=== PATIENT | male | born 2000 | race Caucasian/White ===

== ENCOUNTER 2019-02-09 17:27 | Inpatient (IN) ==
[2019-02-09] MEDS ORDERED: SODIUM CHLORIDE 0.9% 1000ML 1,000 ML IV SCH (17:45)
--- NOTE | 2019-02-09 17:56 | Emergency Department Note ---
History of Present Illness General Chief complaint: Seizure Time Seen by Provider: 02/09/19 17:30 History of Present Illness This is a 18-year-old male that presents to the emergency department via ambulance with plaints of seizure. Per history, and review of previous visit it appears that he had a seizure back in September and none since then. The patient denies any drug, alcohol or smoking today but per history it appears that he has used a vapor pen in the past. He does appear to be postictal. The patient d enies any complaints at this time. Per EMS, he was transported here earlier and had a witnessed tonic-clonic seizure that lasted about 1 minute. There was mild head trauma at that time. He was then here as a patient and went home, and was face timing with his girlfriend and his roommate witnessed another tonic-clonic seizure. He struck the head again. Although he is postictal now, he does ans wer questions appropriately. I was notified by the nurse that a vape pen fell out of the patient's pocket. In route, BSG 117. No further seizures. Including this most recent one, he has had 2 seizures today. He is a [employer] student. Home Medications Home Medications Medication Instructions Recorded Confirmed Type epinephrine [EpiPen] 0.3 mg IM UD PRN 02/09/19 02/09/19 History ibuprofen 200 mg PO Q6H PRN 02/09/19 02/09/19 History Allergies Allergy/AdvReac Type Severity Reaction Status Date / Time nut - unspecified Allergy Severe Anaphylaxis Unverified 02/09/19 14:47 shellfish derived Allergy Severe Anaphylaxis Unverified 02/09/19 14:47 Past Med/Surg History Medical History No pertinent past medical history Surgical History No pertinent past surgical history Social History Preferred Language: Sinhala Feels Safe at Home: Yes Smoking Status: Unknown if ever smoked Review of Systems A total of 10 systems reviewed and were otherwise negative Physical Exam Vital Signs Vital Signs - 24 hr 02/09/19 17:31 02/09/19 17:36 02/09/19 17:37 Temperature 37.0 C Temperature Source Oral Sepsis Recent Fever Within 48 Hours No Sepsis Action Taken by Nursing No Action Required Pulse Rate 87 112 H 91 H Pulse Rate from SpO2 Sensor 89 Pulse Rhythm Regular Pulse Strength Normal Respiratory Rate 19 16 17 Respiratory Effort / Characteristics Non-Labored Respiratory Depth Normal Respiratory Pattern Regular Blood Pressure 108/53 L 108/53 L Blood Pressure Mean 71 71 Blood Pressure Position Lying Pulse Oximetry 95 97 Oxygen Delivery Method Room Air 02/09/19 17:40 02/09/19 17:50 02/09/19 18:00 Temperature Temperature Source Sepsis Recent Fever Within 48 Hours Sepsis Action Taken by Nursing Pulse Rate 81 77 78 Pulse Rate from SpO2 Sensor 81 80 83 Pulse Rhythm Pulse Strength Respiratory Rate 13 19 16 Respiratory Effort / Characteristics Respiratory Depth Respiratory Pattern Blood Pressure Blood Pressure Mean Blood Pressure Position Pulse Oximetry 97 98 97 Oxygen Delivery Method 02/09/19 18:10 02/09/19 18:20 02/09/19 18:30 Temperature Temperature Source Sepsis Recent Fever Within 48 Hours Sepsis Action Taken by Nursing Pulse Rate 67 90 75 Pulse Rate from SpO2 Sensor 81 Pulse Rhythm Pulse Strength Respiratory Rate 19 19 12 Respiratory Effort / Characteristics Respiratory Depth Respiratory Pattern Blood Pressure Blood Pressure Mean Blood Pressure Position Pulse Oximetry 98 Oxygen Delivery Method 02/09/19 18:40 02/09/19 18:50 02/09/19 19:03 Temperature Temperature Source Sepsis Recent Fever Within 48 Hours Sepsis Action Taken by Nursing Pulse Rate 72 71 79 Pulse Rate from SpO2 Sensor 77 Pulse Rhythm Pulse Strength Respiratory Rate 20 21 23 Respiratory Effort / Characteristics Respiratory Depth Respiratory Pattern Blood Pressure 114/66 Blood Pressure Mean 82 Blood Pressure Position Pulse Oximetry 99 Oxygen Delivery Method VITAL SIGNS - Vital signs and nursing notes were reviewed. Slightly hypotensive and tachycardic, otherwise stable. GENERAL -18-year-old male appearing his stated age who is in no acute distress. Communicates well with provider and answers questions appropriately. SKIN - Without rashes. No meningeal or petechial rash. No murphy signs or racc oon's eyes. No break in the integument. HEAD - NC/AT. EYES - PERRL with EOMI bilaterally. Sclera anicteric. Palpebral conjunctiva pink and moist with no injection noted. EARS - No deformities of external structures noted on gross examination bilaterally. No pain elicited with palpation of the tragus bilaterally. External auditory canals without discharge or otorrhea. Tympanic membranes pearly puente without retraction or bulging. No fluid or purulent material visualized behind the TM. Handle of malleus, umbo, cone of light, pars tensa/flaccid all easily visualized. NOSE - Midline and without cyanosis. No epistaxis or purulent drainage noted. Septum midline without deviation or septal hematoma noted. MOUTH/OROPHARYNX - Without perioral cyanosis. Buccal mucosa pink and moist and without leukoplakia. Tongue midline with equal elevation of palate bilaterally. No tonsillar hypertrophy, erythema, or exudates noted. Good dentition noted. NECK - Neck with FROM. Supple to palpation. No lymphadenopathy noted. No nuchal rigidity. LUNGS - Chest wall symmetric without accessory muscle use, intercostals retractions, or central cyanosis. Normal vesicular breath sounds CTA B/L. No wheezes, rales, or rhonchi appreciated. CARDIAC - RRR with S1/S2. No murmur, rubs, or gallops appreciated. ABDOMEN - Abdominal contour normal without pulsations or visible masses. BS normoactive all four quadrants. No tenderness, palpable masses, hepatosplenomegaly, or ascites noted. EXTREMITIES - No clubbing or peripheral cyanosis. No pretibial edema present. +5/5 strength noted in UE/LE bilaterally. NEUROLOGIC - Cranial nerves II through XII grossly intact. Sensory intact to light touch throughout. PSYCH - A&Ox3 (upon repeat examination) and cooperates fully with examiner. Pt is very pleasant and interacts well with examiner. Course Administered Medications Discontinued Medications Levetiracetam 1,000 mg/ (Dextrose) 110 mls @ 440 mls/hr IV NOW STA Stop: 02/09/19 17:55 Last Infusion: 02/09/19 18:44 Dose: 0 mls/hr Documented by: [id number] Admin: 02/09/19 17:56 Dose: 440 mls/hr Documented by: [id number] Sodium Chloride (Nss 1000ml) 1,000 mls @ 999 mls/hr IV .Q1H1M TYLER Stop: 02/09/19 18:45 Last Infusion: 02/09/19 18:43 Dose: 0 mls/hr Documented by: [id number] Admin: 02/09/19 17:48 Dose: 999 mls/hr Documented by: [id number] Medical Decision Making Laboratory Data Result diagrams: 09/19/19 17:56 Lab Results 02/09/19 02/09/19 02/09/19 Range/Units 17:48 17:56 17:59 Sodium 140 (136-145) mmol/L Potassium 3.9 (3.5-5.1) mmol/L Chloride 104 (98-107) mmol/L Carbon Dioxide 21 (21-32) mmol/L Anion Gap 15.0 H (3-11) BUN 10 (7-18) mg/dl Creatinine 1.33 (0.6-1.4) mg/dl Est Cr Clr Drug Dosing 83.5 ml/min Est GFR ( Amer) 89.2 Est GFR (Non-Af Amer) 77.0 BUN/Creatinine Ratio 7.6 L (10-20) Glucose 101 H (70-99) mg/dl Calcium 9.2 (8.5-10.1) mg/dl Phosphorus 4.3 D (2.5-4.9) mg/dl Magnesium 2.4 (1.8-2.4) mg/dl Urine Opiates Screen Neg (Neg) Ur Methadone, Qual Neg (Neg) Urine Barbiturates Neg (Neg) Ur Phencyclidine (PCP) Neg (Neg) U Amphetamin/Meth Scrn Neg (Neg) MDMA (Ecstasy) Screen Neg (Neg) U Benzodiazepines Scrn Neg (Neg) Ur Cocaine Metabolite Neg (Neg) U Marijuana (THC) Screen Pos H (Neg) Ethyl Alcohol mg/dL < 3.0 (0-3) mg/dl MDM Narrative Patient was seen and evaluated as above in room a 11. Review was performed of nursing notes and vital signs. After obtaining a thorough history and physical examination the above work up was performed. He presents to us today via ambulance. This is a second visit here today for seizure. Per history, it appears that he has seizure earlier today, and then went home, and then the roommate witnessed another tonic-clonic seizure. Please upon arrival note a smell of marijuana per EMS. There is a vape pen per nurse in the patient's pocket that fell out. Once patient was more aware, he notes that he does use a THC vape cartridge for his vape pen and did buy this from a different person recently. The father then came to bedside. Patient consented to discussing his findings openly. CBC from earlier reveals leukocytosis. This is likely seco ndary to the seizure. I did elect to repeat a metabolic panel which shows a glucose of 101. Phosphorus 4.3 and magnesium of 2.4. Urine drug screen positive for marijuana. Synthetics pending. Alcohol negative. He was started on 1 g of Keppra IV and an MRI with and without contrast of the brain was ordered. I discussed today's findings with the attending physician as well as the hospitalist, Dr. Ramsey at 6:02 PM. He recommended adding on an EEG, and checking electrolytes as well. I relayed all of this to the hospitalist, Dr. Berry. He will admit the patient for further evaluation and management. Please refer to further documentation regarding his stay. Patient was thoroughly counseled upon recommendation of cessation of the vape pen and THC. Case was discussed with the attending physician. GCS: 15 In the evaluation and treatment of this patient, the following differential diagnoses were considered: Concussion, Contrecoup Injury, Brain Tumor, Depression, Encephalitis, Hypothyroidism, Meningitis, CVA, TIA, Migraine, Cluster Headache, Intracranial Abnormality, Intracranial Hemorrhage, Subdural Hematoma, Subarachnoid Hemorrhage, Hydrocephalus, toxicity, among others. Impression & Plan Seizure Discharge Plan Visit Data Chief Complaint: Seizure ED Provider: Derrick Cruz ED Midlevel Provider: Binu Cross Discharge Problem: Seizure Patient Disposition: Admitted As Inpatient Condition: Good Forms Stand Alone Forms: My [facility] blogfoster Prescriptions Prescriptions: No Action ibuprofen 200 mg Capsule 200 mg PO Q6H PRN (Reason: Pain) RF: 0 epinephrine [EpiPen] 0.3 mg/0.3 mL Auto-Injector 0.3 mg IM UD PRN (Reason: Allergic Reaction) RF: 0 Referrals Referrals: [facility] [Primary Care Provider] -
[2019-02-09 18:24] LABS: Amphetamines+Metham, Urine Neg (Neg); Barbiturates, Urine Neg (Neg); Benzodiazepine, Urine Neg (Neg); Cocaine, Urine Neg (Neg); MDMA (Ecstacy), Urine Neg (Neg); Methadone, Urine Neg (Neg); Opiate, Urine Neg (Neg); Phencyclidine, Urine Neg (Neg)
[2019-02-09 18:31] LABS: BUN Creatinine Ratio 7.6 (10-20); Calcium 9.2 mg/dl (8.5-10.1); Creatinine Clr Calc Pharmacy 83.5 ml/min; Est GFR (African American) 89.2; Magnesium 2.4 mg/dl (1.8-2.4); Potassium 3.9 mmol/L (3.5-5.1)
[2019-02-09 18:40] LABS: Phosphorus 4.3 mg/dl (2.5-4.9)
--- NOTE | 2019-02-09 20:17 | Communication Note ---
Date of Service: February 09, 2019 I personally interviewed and examined the patient. I agree with history of present illness and physical exam mentioned above, I also performed my own history taking and examination. Past medical history and review of system has been obtained by myself I reviewed all pertinent labs and studies Reviewed current medications I discussed and formulated of the assessment and plan mentioned above. Please refer to the Summary mentioned below. Chief complaint/recurrent seizure HPI 18 years old boy with no past medical history except for 2 episodes of seizure disorder that happened in September 2018, the 2 episodes of seizure was aborted about 3 hours apart he was admitted to the hospital in [place] MRI and EEG at that time were negative, his urine drug screen showed marijuana and the seizure was attributed to marijuana, he was placed on Keppra for 7 weeks then he was taking of Keppra for 10 days and he did a continuous 48-hour video EEG that was negative. Since then he was not taking any antiseizure medications. During that time patient admits that he was on and off marijuana secretly. He was not having any medical problems until today where he had an episode of seizure came to the ED initial work-up was negative and he was sent home to follow-up with neurologist he was instructed not to drink or smoke marijuana while his face timing his girlfriend at home he had an episode of seizure and when the police came to the apartment they said apartment smelled like marijuana, they brought him back to the ED . He denies any memory recollection of what happens to him before the seizure, unable to tell me if he has any aura or not prior to the seizure. As per father he never had any history of any illness prior to that. Patient is smoking marijuana through the vibe device. His white blood cell count was 15.6 likely reactive one of his blood sugar measurement where 68. Patient will be admitted to telemetry Will have MRI with and without contrast Urine drug screen was ordered and showed marijuana, specific test for synthetic marijuana was ordered, also specific test for stimulant was ordered. EEG awake and sleep was ordered and neurology consult for Dr. Ramsey Review of system was negative as patient does not remember the episodes of marijuana 12 systems were reviewed and were all negative General Appearance: not in acute distress Eyes: normal Sclerae, extraocular muscle intact ENT: hearing grossly normal Neck: supple Respiratory/Chest: normal air entry bilateral ,no respiratory distress, no accessory muscle use Cardiovascular: regular rate, rhythm, no murmur Abdomen: non tender, soft, no masses Extremities: no edema musculoskeletal: no significant swelling or inflammation in any joint Neurologic/Psychiatric: Awake alert oriented times place and person moves all extremities sensation intact cranial nerves II-12 appear to be intact Skin: normal color, warm/dry, no rash Assessment Recurrent episodes of seizure concomitant with marijuana use An episode of low blood sugar/borderline 68 Plan MRI with and without contrast EEG Neurology consult Loaded with Keppra 1000 mg IV Start Keppra 500 twice daily from tomorrow We will order hemoglobin A1c and frequent blood sugar check without insulin coverage just to rule out episodes of low blood sugar, if another blood sugar was detected low and will check insulin level for insulin and sulfonylurea level Fab Ritter MD, [facility] hospitalist group
--- NOTE | 2019-02-09 20:31 | History & Physical Report ---
Date of Service February 09, 2019 Assessment & Plan (1) Generalized seizure: 18 yo M PMHx first seizure September 2018 here for generalized tonic-clonic seizure. Generalized seizure exacerbated by marijuana use - Seizures appear to be exacerbated by marijuana use which the patient has continued since his last seizure. UDS positive for marijuana. - Synthetic marijuana and stimulants pending. - Consult Neuro (Dr. Ramsey) placed. - MRI w/ and w/o ordered. EEG awake/sleeping ordered. - Was loaded with Keppra today, Keppra 500mg PO BID starting tomorrow AM. - Given episode of hypoglycemia earlier today of 68 have ordered Hgb A1c and POC glucose checks q4 hours. - Lengthy discussion with both the pt and his father about the dangers of marijuana lowering his seizure threshold and how moving forward he needs to stop smoking marijuana to help prevent future seizures. Present on Admission?: Yes (2) Marijuana abuse: Present on Admission?: Yes History of Present Illness Primary Care Provider: [facility] 18 yo M PMHx significant for first seizure in September 2018 presents for witnessed tonic-clonic seizure x2 today. Earlier was in our ER for generalized tonic- clonic seizure, Dr. Ramsey discussed pt with ED attending and was decided he would be sent home with outpatient Neurology follow up. One hour later had another witnessed tonic-clonic seizure and was brought in by EMS. Loaded with Keppra 1000 mg IV, 1L NSS bolus, UDS performed positive for marijuana, synthetic marijuana and stimulants pending. CT head negative, admitting team consulted. On interview pt reports that he is diffusely sore but is otherwise feeling well at this time. He does not recall any events from today, last recalled memory was yesterday. Here with father who reports that in September he had his first seizure, at that time was marijuana positive and had CT, MRI, EEG which were all negative. Pt's father has these records with him. Was started at that time on Keppra 500mg BID however was stopped in November for video EEG 48 hr which was also negative. Was instructed not to drink or smoke marijuana which pt admits he did not adhere to. Smokes marijuana intermittently and reports that 1 month ago he "changed growers". He uses a vape pen to smoke. Does not think he has any aura prior to seizure. Does not think that he lost control of bowels or bladder or bit his tongue during surgery. No recent illnesses, fevers, chills, abdominal pains, changes in bowels or bladder. No nausea or vomiting. Did not eat anything today. Allergies Allergy/AdvReac Type Severity Reaction Status Date / Time nut - unspecified Allergy Severe Anaphylaxis Unverified 02/09/19 14:47 shellfish derived Allergy Severe Anaphylaxis Unverified 02/09/19 14:47 Home Medications Home Medications Medication Instructions Recorded Confirmed Type epinephrine [EpiPen] 0.3 mg IM UD PRN 02/09/19 02/09/19 History ibuprofen 200 mg PO Q6H PRN 02/09/19 02/09/19 History levetiracetam [Keppra] 500 mg PO BID #60 tab 02/10/19 Rx Past Med/Surg History Medical History No pertinent past medical history Surgical History No pertinent past surgical history Family History Father No problems noted. Mother No problems noted. Social History Preferred Language: Canadian Communication Ability: Effective Hydrometeorology Teacher Required: No Beliefs That Will Affect Care: None Current Living Situation: Other Current Living Situation Comment: dorm at [facility] current occupational status: student Feels Safe at Home: Yes Smoking Status: Light tobacco smoker Tobacco Type: e-cigarettes ; Hx Alcohol Use: Yes Alcohol type: beer Hx Substance Use: Yes substance use type: marijuana Review of Systems Constitutional: + body aches; no fever, no chills and no malaise Eyes: no blind spots and not seeing flashes Ear, Nose, Mouth, Throat: no tinnitus and no dizziness Respiratory: no cough, no dyspnea and no wheezing Cardiovascular: no chest pain, no dyspnea, no palpitations, no syncope and no edema Gastrointestinal: no abdominal pain, no nausea, no vomiting, no constipation and no diarrhea/loose stools Genitourinary: no dysuria and no hematuria Neurologic: no headache(s) Physical Exam Constitutional: WD/WN, vitals as above Eyes: PERRL, conjunctivae normal, anicteric sclerae ENMT: Ears: no external ear abnormality Nose: no external nose abnormality small laceration on left tongue. Respiratory: normal respiratory effort, lungs clear to auscultation Cardiovascular: RRR, no murmur, no edema Gastrointestinal (Abdomen): normal bowel sounds, soft, nontender, no hepatosplenomegaly Musculoskeletal: no cyanosis or clubbing, extremities motor strength 5/5 Skin: no rashes, warm and dry Neurologic: PERRL, EOMI, accommodation nl, no face palsy, no dysarthria CN's II-XI intact bilaterally Psychiatric: A+Ox3, euthymic affect Results & Data Vital Signs (Past 12 Hours) Vital Signs Temp Pulse Resp BP Pulse Ox 02/09/19 19:03 79 23 114/66 99 02/09/19 18:50 71 21 02/09/19 18:40 72 20 02/09/19 18:30 75 12 02/09/19 18:20 90 19 02/09/19 18:10 67 19 98 02/09/19 18:00 78 16 97 02/09/19 17:50 77 19 98 02/09/19 17:40 81 13 97 02/09/19 17:37 91 H 17 97 02/09/19 17:36 37.0 C 112 H 16 108/53 L 95 02/09/19 17:31 87 19 108/53 L Laboratory Results Laboratory Results - last 24 hr 02/09/19 02/09/19 02/09/19 17:48 17:48 17:48 Sodium Potassium Chloride Carbon Dioxide Anion Gap BUN Creatinine Est Cr Clr Drug Dosing Est GFR ( Amer) Est GFR (Non-Af Amer) BUN/Creatinine Ratio Glucose Calcium Phosphorus Magnesium Urine Synthetic Stimulants Pending Urine Opiates Screen Neg Ur Methadone, Qual Neg Urine Barbiturates Neg Ur Phencyclidine (PCP) Neg U Amphetamin/Meth Scrn Neg MDMA (Ecstasy) Screen Neg U Benzodiazepines Scrn Neg Ur Cocaine Metabolite Neg Cannabinoids Comment Pending U Synth Cannabinoids Pending U Synth Cannabinoid Conf Pending U Marijuana (THC) Screen Pos H U Marijuana THC Carboxy Pending Ethyl Alcohol mg/dL 02/09/19 02/09/19 17:56 17:59 Sodium 140 Potassium 3.9 Chloride 104 Carbon Dioxide 21 Anion Gap 15.0 H BUN 10 Creatinine 1.33 Est Cr Clr Drug Dosing 83.5 Est GFR ( Amer) 89.2 Est GFR (Non-Af Amer) 77.0 BUN/Creatinine Ratio 7.6 L Glucose 101 H Calcium 9.2 Phosphorus 4.3 D Magnesium 2.4 Urine Synthetic Stimulants Urine Opiates Screen Ur Methadone, Qual Urine Barbiturates Ur Phencyclidine (PCP) U Amphetamin/Meth Scrn MDMA (Ecstasy) Screen U Benzodiazepines Scrn Ur Cocaine Metabolite Cannabinoids Comment U Synth Cannabinoids U Synth Cannabinoid Conf U Marijuana (THC) Screen U Marijuana THC Carboxy Ethyl Alcohol mg/dL < 3.0 Diagnostic Findings CThead 02/09/19 Impression: No acute intracranial abnormality. Code Status & VTE Plan Code Status FULL VTE Prophylaxis Plan VTE Prophylaxis will be ordered: Yes Supervising Physician Co-Signing Physician Notes Attending addendum: I have supervised the medical residents activities, and agree with the H&P unless as otherwise noted. Assessment and Plan: Generalized tonic-clonic seizure- Admit to monitored bed. Seizure precautions. Keppra as noted. CT of head negative. MRI of brain with and without contrast ordered EEG ordered. Additional contributing factors: Marijuana abuse, hypoglycemia. Patient and family education. Neurology consult Dr. Ramsey. Remainder of orders and notations as noted PG Care Time/CCT Total # of Minutes Spent Total Time Spent with Patient: Total time spent is greater than 50% in coordination of care (as documented) at patient's floor/unit and/or counseling patient: Resident Activity Tracking Resident Involvement: Resident Care Provided Care Provided: Adult Hospital Medicine
[2019-02-09] MEDS ORDERED: GADOBUTROL 65ML VIAL IV PRN (21:10)
[2019-02-09] MEDS ORDERED: ALUMINUM/MAGNESIUM SUSP 30 ML UDC PO PRN (21:19)
[2019-02-09] MEDS ORDERED: EPINEPHRINE ADULT AUTO-INJECT 0.3 MG SYR IM PRN (21:19)
[2019-02-09] MEDS ORDERED: POLYETHYLENE (MIRALAX) 17 GM PACK PO PRN (21:19)
[2019-02-09] MEDS ORDERED: MAGNESIUM HYDROXIDE SUSP 30 ML UDC PO PRN (21:19)
[2019-02-09] MEDS ORDERED: ACETAMINOPHEN 325 MG TAB PO PRN (21:19)
--- NOTE | 2019-02-09 21:25 | Magnetic Resonance Report ---
Brain MRI WITH AND WITHOUT CONTRAST HISTORY: seizure TECHNIQUE: Multiplanar multisequence MRI of the brain was performed both before and after the intrave nous administration of contrast. COMPARISON STUDY: Head CT 02/09/2019. FINDINGS: There are no areas of restricted diffusion to suggest acute infarction. The midline structu res are intact. The paranasal sinuses are clear. The mastoid air cells are clear. The ventricles and sulci are within normal limits for age. There is no mass, hematoma, midline shift. The major vascular flow-voids at the skull base are well maintained. Postcontrast sequences show no areas of abnormal e nhancement. IMPRESSION: No acute intracranial abnormality. Electronically signed by: Reid Gonzáles M.D. 02/09/2019 9:23 PM
[2019-02-10 04:33] LABS: Basophils # (auto) 0.02 K/uL (0-0.2); Basophils % (auto) 0.1 %; Eosinophils # (auto) 0.04 K/uL (0-0.5); Eosinophils % (auto) 0.3 %; Hematocrit (blood only) 36.9 % (42-52); Hemoglobin 13.1 g/dL (14.0-18.0); Immature Granulocytes # (auto) 0.03 K/uL (0.00-0.02); Immature Granulocytes % (auto) 0.2 %; Lymphocytes # (auto) 1.47 K/uL (1.2-3.4); Lymphocytes % (auto) 10.7 %; Mean Corpuscular Hemoglobin 31.6 pg (25-34); Mean Corpuscular Hgb Conc 35.5 g/dL (32-36); Mean Corpuscular Volume 88.9 fL (80-100); Mean Platelet Volume 9.3 fL (7.4-10.4); Monocytes # (auto) 1.38 K/uL (0.11-0.59); Monocytes % (auto) 10.1 %; Neutrophils # (auto) 10.78 K/uL (1.4-6.5); Neutrophils % (auto) 78.6 %; Platelet Count 202 K/uL (130-400); RDW Coefficient of Variation 12.3 % (11.5-14.5); RDW Standard Deviation 39.7 fL (36.4-46.3); Red Blood Count 4.15 M/uL (4.7-6.1); White Blood Count 13.72 K/uL (4.8-10.8)
[2019-02-10 04:55] LABS: BUN Creatinine Ratio 9.4 (10-20); Calcium 8.6 mg/dl (8.5-10.1); Creatinine Clr Calc Pharmacy 122.5 ml/min; Est GFR (African American) 132.3; Est GFR (Non-African American) 114.1; Potassium 3.6 mmol/L (3.5-5.1)
[2019-02-10 06:16] LABS: Estimated Average Glucose 100 mg/dl; Hemoglobin A1C 5.1 % (4.5-5.6)
--- NOTE | 2019-02-10 08:59 | Hospitalist Progress Note ---
Date of Service February 10, 2019 Assessment & Plan (1) Generalized seizure: 18 yo M PMHx first seizure September 2018 here for generalized tonic-clonic seizure. Generalized seizure exacerbated by marijuana use - Seizures appear to be exacerbated by marijuana use which the patient has continued since his last seizure. UDS positive for marijuana. - Synthetic marijuana and stimulants pending. - Consult Neuro (Dr. Ramsey) placed. - MRI w/ and w/o ordered. EEG awake/sleeping ordered. - Was loaded with Keppra today, Keppra 500mg PO BID starting tomorrow AM. - Given episode of hypoglycemia earlier today of 68 have ordered Hgb A1c and POC glucose checks q4 hours. - Lengthy discussion with both the pt and his father about the dangers of marijuana lowering his seizure threshold and how moving forward he needs to stop smoking marijuana to help prevent future seizures. (2) Marijuana abuse: Physical Exam Constitutional: WD/WN, vitals as above Eyes: PERRL, conjunctivae normal, anicteric sclerae ENMT: Ears: no external ear abnormality Nose: no external nose abnormality Respiratory: normal respiratory effort, lungs clear to auscultation Cardiovascular: RRR, no murmur, no edema Gastrointestinal (Abdomen): normal bowel sounds, soft, nontender, no hepatosplenomegaly Musculoskeletal: no cyanosis or clubbing, extremities motor strength 5/5 Skin: no rashes, warm and dry Neurologic: PERRL, EOMI, accommodation nl, no face palsy, no dysarthria CN's II-XI intact bilaterally Psychiatric: A+Ox3, euthymic affect Results & Data Vital Signs (Past 12 Hours) Vital Signs Temp Pulse Pulse Resp BP BP Pulse Ox 02/10/19 00:10 98.1 F 79 24 119/56 L 97 02/10/19 00:00 71 19 02/09/19 22:00 69 16 02/09/19 21:50 70 19 02/09/19 21:40 68 5 L 02/09/19 21:30 70 1 L 02/09/19 21:20 98.1 F 72 71 24 114/53 L 97 PG Care Time/CCT Total # of Minutes Spent Total Time Spent with Patient: Total time spent is greater than 50% in coordination of care (as documented) at patient's floor/unit and/or counseling patient:
[2019-02-10] MEDS ORDERED: levETIRAcetam 500 MG TAB PO SCH (09:00)
--- NOTE | 2019-02-10 09:45 | Electroencephalogram ---
EEG Procedure Note Date of Service February 10, 2019 Start / End Times Start Time: 554 End Time: [address] Sánchez History 18-year-old with history of generalized tonic-clonic seizures. Home Medication List Home Medications Medication Instructions Recorded Confirmed Type epinephrine [EpiPen] 0.3 mg IM UD PRN 02/09/19 02/09/19 History ibuprofen 200 mg PO Q6H PRN 02/09/19 02/09/19 History Inpatient Medication List Gadobutrol (Gadavist 65ml) 6.5 ml IV ONCE PRN PRN Reason: Interaction Checking Stop: 02/13/19 21:09 Last Admin: 02/09/19 21:10 Dose: 6.5 ml Documented by: [id number] Levetiracetam (Keppra) 500 mg PO BID TYLER Stop: 03/12/19 08:59 Last Admin: 02/10/19 08:43 Dose: 500 mg Documented by: [id number] Discontinued Medications Levetiracetam 1,000 mg/ (Dextrose) 110 mls @ 440 mls/hr IV NOW STA Stop: 02/09/19 17:55 Last Infusion: 02/09/19 18:44 Dose: 0 mls/hr Documented by: [id number] Admin: 02/09/19 17:56 Dose: 440 mls/hr Documented by: [id number] Sodium Chloride (Nss 1000ml) 1,000 mls @ 999 mls/hr IV .Q1H1M TYLER Stop: 02/09/19 18:45 Last Infusion: 02/09/19 18:43 Dose: 0 mls/hr Documented by: [id number] Admin: 02/09/19 17:48 Dose: 999 mls/hr Documented by: [id number] Description This is a 21 electrode EEG with a single channel dedicated to limited EKG. The electrodes were placed in accordance with the International 10-20 system. Interpretation The predominant background activity consists of a somewhat irregular 9 Hz activity, of up to 40 mV in amplitude,seen symmetrically distributed over the posterior head regions bilaterally. This activity attenuates nicely with eye- opening and other alerting procedures. Photic stimulation was performed and elicited no change in the background activity and no abnormal responses were seen. Hyperventilation was not performed. A minimal amount of muscle and movement artifact activity contaminated the recording and did not hinder interpretation to any significant degree. Throughout the waking portion of the recording, no focal abnormalities, abnormal slow activity, or potentially epileptogenic discharges are seen. The patient entered the drowsy state and periods of stage II sleep with no further activation. In summary, this EEG was normal during wakefulness and sleep. No focal abnormalities, potentially epileptogenic discharges, or abnormal slow activity was seen. Clinical Correlation The absence of potentially epileptogenic activity does not exclude a seizure disorder, since interictally, EEGs can be normal. Clinical correlation is required. [facility] EEG Procedure Codes Indication for Procedure (1) Generalized seizure: Neurology Neurology: 93022 EEG include record awake & sleepy
--- NOTE | 2019-02-10 10:47 | Neurology Consultation ---
Date of Consultation February 10, 2019 Assessment & Plan (1) Generalized seizure: (2) Marijuana abuse: This patient had at least 1 generalized tonic-clonic seizure on February 09 (he was found in the bathroom for the 1st event which was presumed to be a seizure). In September of 2018 he had 2 generalized tonic-clonic seizures in a day. The etiology of the seizures could possibly be due to substances that he is vaping, or he could have an underlying epilepsy tendency which is brought out by various risk factors. Clinically he is doing well with no focal findings, meningeal signs, or encephalopathy. Laboratory studies, EEG, and MRI were unremarkable. Recommendations: 1. Continue levetiracetam 500 milligrams twice daily. 2. No driving for now. 3. The patient can attend classes starting Wednesday. 4. I can follow up as an outpatient in 2-3 weeks. Overall, I spent a total of 110 minutes with this case including review of records, review of MRI films, direct evaluation the patient at bedside, and discussed the case with the patient at bedside, his father at bedside, and Dr. Mansfield, including differential diagnosis and treatment options. History of Present Illness Reason for Consultation: Patient is a 18-year-old, who I was asked to see the request of Dr. Mansfield, for neurologic consultation regarding seizures Requesting Physician: Dr. Mansfield Attending Physician: Juancho Mansfield MD History of Present Illness The patient apparently has no history of medical problems as an infant her child and no history of seizures. He has had no previous surgeries. He is on no medication. In September of 2018 he had finished his freshman year at [employer], going home to [place] and on the evening of October 01 he had considerable amount of alcohol as well as THC. Apparently he was out of it when he came home steady night according to the father who is present at bedside. The next day the patient feels he did well without significant issue but in the evening he was very diaphoretic and feeling a little tired and ill. The morning of the he had a generalized seizure. He was taken to a local emergency room where he had a 2nd event. He was put on Keppra and had no further events. Apparently an MRI in testing was unremarkable but I do not have these results. The father is providing results for us to scanned into the chart. The patient stayed on Keppra for about 6 weeks then stopped. After 2 weeks of being off the mi dication he had a 48 hour EEG which apparently was normal. He has had no spells or problem since until yesterday. Patient had vaped THC the night before. On the morning of February 09, the patient awoke and apparently went to breakfast but does not remember this. He was found on the bathroom floor gurgling. He was taken to the emergency room arriving at 1335 with a temperature 36.6, pulse 78, respiratory rate 20, blood pressure 118/66, O2 saturation 99 percent. He was considered normal with mental status and exam in the emergency room but he does not recall being in the emergency room very much. Chem profile, CBC, and CT scan of the head were unremarkable. White count was 15.5. He was sent home, and went back to his door. He believes he did not do any further vaping and remembers talking to his girlfriend on the phone when apparently he had another generalized tonic-clonic seizure. He was brought back to the emergency room. Chem profile and CBC were unremarkable. He was put back on Keppra. MRI of the brain was unremarkable. He has had no further events overnight and nursing reports no abnormalities otherwise. The patient feels well without headache, dizziness, or vision problems. His balance is reasonable. Does have some sore muscles in general particularly in his thighs and he feels that his left shoulder has been injured. There is no family history of seizures. EEG was obtained this morning and was normal awake and asleep. There were no focal abnormalities or potentially epileptogenic discharges. Allergies Allergy/AdvReac Type Severity Reaction Status Date / Time nut - unspecified Allergy Severe Anaphylaxis Unverified 02/09/19 14:47 shellfish derived Allergy Severe Anaphylaxis Unverified 02/09/19 14:47 Home Medications Home Medications Medication Instructions Recorded Confirmed Type epinephrine [EpiPen] 0.3 mg IM UD PRN 02/09/19 02/09/19 History ibuprofen 200 mg PO Q6H PRN 02/09/19 02/09/19 History Patient History Medical History No pertinent past medical history Surgical History No pertinent past surgical history Family History Father No problems noted. Mother No problems noted. Social History Preferred Language: Arabic Communication Ability: Effective Food Server Required: No Beliefs That Will Affect Care: None Current Living Situation: Other Current Living Situation Comment: dorm at [facility] current occupational status: student Feels Safe at Home: Yes Smoking Status: Light tobacco smoker Tobacco Type: e-cigarettes ; Do You Dip or Chew Tobacco: No ; Hx Alcohol Use: Yes Alcohol type: beer Hx Substance Use: Yes substance use type: marijuana Review of Systems Constitutional: no fever, no fatigue and no weakness Eyes: no diplopia, no eye pain and no worsening vision Ear, Nose, Mouth, Throat: no ear pain, no tinnitus, no hearing loss, no dizziness, no snoring, no hoarseness and no dysphagia Respiratory: no cough and no dyspnea Cardiovascular: no chest pain, no palpitations and no lightheadedness Gastrointestinal: no abdominal pain, no nausea and no vomiting Genitourinary: no urinary frequency and no urinary incontinence Musculoskeletal: no back pain, no neck pain, no radicular pain, no joint pain and no myalgia Integumentary: no rash and no lesions Neurologic: no gait abnormality, no localized weakness, no generalized weakness, no tingling, no numbness, no tremor(s), no abnormal movements, no headache(s), no abnormal speech, no confusion and no memory loss Psychiatric: no depression, no irritability, no anxiety, no difficulty concentrating, no confusion and no hallucinations Endocrine: no fatigue and no flushing Hematologic / Lymphatic: no easy bleeding and no easy bruising Allergy / Immunological: no urticaria and no problem reported Physical Exam Physical Exam: The patient is right-handed. The patient is awake, alert, and attentive. Speech is normal without any aphasia or dysarthria. She can name objects, repeat phrases, and has normal spontaneous speech. Mentation and thought processes are intact, with orientation to person, place and time, and normal fund of knowledge. Attention and concentration are normal. Mood and affect are normal and appropriate. General appearance and grooming are normal. Short and long-term memory are intact. The discs are sharp with positive venous pulsations bilaterally. There are no exudates, hemorrhages, or blood vessel changes seen. Pupils are 4 mm bilaterally and reactive to light. Extraocular eye muscles are intact without nystagmus. Visual acuity and visual jeff seem normal grossly to confrontation. There are no deficits to sensation in the face in all 3 distributions of the fifth cranial nerve bilaterally. Corneal reflexes are positive bilaterally. Facial strength and symmetry was normal bilaterally. Hearing seems normal to whisper and finger rub bilaterally. Palate moves well without asymmetry. There is normal sternocleidomastoid and trapezius (shoulder shrug) strength bilaterally. Tongue is midline with good strength bilaterally. Neck has a full range of motion without discomfort. There are no cervical bruits bilaterally. There are no cranial or ocular bruits. Heart is without murmur. There is a regular rhythm and rate. Cervical, thoracic, and lumbar spine are nontender to palpation. Gait is narrow based, with good arm swing, turns, and stance. Balance is normal eyes open or closed. With outstretched arms there is no drift. There are no resting, postural, or action tremors. There is no ataxia with finger to nose testing. There is good facility in the hands. No other abnormal involuntary movements are noted. Motor strength is 5/5 diffusely in the arms bilaterally including deltoids, biceps, triceps, brachioradialis, wrist flexors and extensors, type copy examiner, and intrinsic hand muscles. Motor strength is 5/5 diffusely in the legs bilaterally including hip flexors, quadriceps, hamstrings, gastrocnemius, tibialis anterior, tibialis posterior, and Peroneii muscles. Toe extensors are normal and there is good bulk in the extensor digitorum brevis muscles bilaterally. The limbs have good tone without rigidity or spasticity. There is no atrophy noted in the muscles. Muscle bulk is normal, there is no tenderness to palpation, no myotonia to percussion, and no fasciculations seen. Sensory examination is intact to touch and pin throughout all 4 limbs diffusely. Reflexes are 2/4 in the biceps, triceps, brachioradialis, quadriceps, and Achilles tendons bilaterally. There is no clonus bilaterally. Toes are downgoing with plantar stimulation bilaterally. Peripheral pulses are present and of normal quality distally in all 4 limbs. There is no peripheral edema noted in the limbs. Results & Data Vital Signs (Past 12 Hours) Vital Signs Temp Pulse Resp BP Pulse Ox 02/10/19 08:00 36.7 C 82 22 123/74 100 02/10/19 07:00 77 19 02/10/19 00:10 36.7 C 79 24 119/56 L 97 02/10/19 00:00 71 19 Diagnostic Findings Brain MRI WITH AND WITHOUT CONTRAST HISTORY: seizure TECHNIQUE: Multiplanar multisequence MRI of the brain was performed both before and after the intravenous administration of contrast. COMPARISON STUDY: Head CT 02/09/2019. FINDINGS: There are no areas of restricted diffusion to suggest acute infarction. The midline structures are intact. The paranasal sinuses are clear. The mastoid air cells are clear. The ventricles and sulci are within normal limits for age. There is no mass, hematoma, midline shift. The major vascular flow-voids at the skull base are well maintained. Postcontrast sequences show no areas of abnormal enhancement. IMPRESSION: No acute intracranial abnormality. Electronically signed by: Reid Gonzáles M.D. 02/09/2019 9:23 PM PG Care Time/CCT Total # of Minutes Spent Total Time Spent with Patient: Total time spent is greater than 50% in coordination of care (as documented) at patient's floor/unit and/or counseling patient:
--- NOTE | 2019-02-10 13:46 | XRay Report ---
LEFT SHOULDER 3 VIEWS HISTORY: Left shoulder pain s/p seizure ?# COMPARISON: None. FINDINGS: There is no fracture or dislocation. Soft tissues are unremarkable. No radiopaque foreign b odies. IMPRESSION: No fractures. Electronically signed by: Reid Gonzáles M.D. 02/10/2019 1:44 PM
--- NOTE | 2019-02-10 13:51 | Discharge Summary ---
Date of Service February 10, 2019 Admission HPI Per Admitting Provider 18 yo M PMHx significant for first seizure in September 2018 presents for witnessed tonic-clonic seizure x2 today. Earlier was in our ER for generalized tonic- clonic seizure, Dr. Ramsey discussed pt with ED attending and was decided he would be sent home with outpatient Neurology follow up. One hour later had another witnessed tonic-clonic seizure and was brought in by EMS. Loaded with Keppra 1000 mg IV, 1L NSS bolus, UDS performed positive for marijuana, synthetic marijuana and stimulants pending. CT head negative, admitting team consulted. On interview pt reports that he is diffusely sore but is otherwise feeling well at this time. He does not recall any events from today, last recalled memory was yesterday. Here with father who reports that in September he had his first seizure, at that time was marijuana positive and had CT, MRI, EEG which were all negative. Pt's father has these records with him. Was started at that time on Keppra 500mg BID however was stopped in November for video EEG 48 hr which was also negative. Was instructed not to drink or smoke marijuana which pt admits he did not adhere to. Smokes marijuana intermittently and reports that 1 month ago he "changed growers". He uses a vape pen to smoke. Does not think he has any aura prior to seizure. Does not think that he lost control of bowels or bladder or bit his tongue during surgery. No recent illnesses, fevers, chills, abdominal pains, changes in bowels or bladder. No nausea or vomiting. Did not eat anything today. Admission Exam Per Admitting Provider Constitutional: WD/WN, vitals as above Eyes: PERRL, conjunctivae normal, anicteric sclerae ENMT: Ears: no external ear abnormality Nose: no external nose abnormality small laceration on left tongue. Respiratory: normal respiratory effort, lungs clear to auscultation Cardiovascular: RRR, no murmur, no edema Gastrointestinal (Abdomen): normal bowel sounds, soft, nontender, no hepatosplenomegaly Musculoskeletal: no cyanosis or clubbing, extremities motor strength 5/5 Skin: no rashes, warm and dry Neurologic: PERRL, EOMI, accommodation nl, no face palsy, no dysarthria CN's II-XI intact bilaterally Psychiatric: A+Ox3, euthymic affect Principal Diagnosis Generalized tonic-clonic seizure Left rotator cuff injury Left shoulder impingement Discharge Exam Constitutional WD/WN, vitals as above Eyes PERRL, conjunctivae normal, anicteric sclerae ENMT external ear and nose normal, oropharynx normal Neck normal visual inspection and trachea midline Respiratory normal respiratory effort, lungs clear to auscultation Cardiovascular RRR, no murmur, no edema Gastrointestinal (Abdomen) normal bowel sounds, soft, nontender, no hepatosplenomegaly Musculoskeletal no cyanosis or clubbing, extremities motor strength 5/5 Shoulder: + Neer's test positive (left) and + Hawkin's test positive (left); shoulder normal to inspection, no effusion, no skin erythema, no joint line tenderness and no AC joint abnormality Skin no rashes, warm and dry Neurologic PERRL, EOMI, accommodation nl, no face palsy, no dysarthria CN's II-XI intact bilaterally Psychiatric A+Ox3, euthymic affect Discharge Data Allergies Allergy/AdvReac Type Severity Reaction Status Date / Time nut - unspecified Allergy Severe Anaphylaxis Unverified 02/09/19 14:47 shellfish derived Allergy Severe Anaphylaxis Unverified 02/09/19 14:47 No Known Drug Allergies Allergy Unknown Verified 02/24/19 09:26 Consultations 02/09/19 17:47 ED Decision to Admit Stat 02/09/19 21:19 Consult Neurology Routine Ordered Studies 02/09/19 17:41 MR brain seizure wo/w con Stat Hospital Course (1) Generalized seizure: Patient admitted for generalized tonic-clonic seizure. Other recent episodes in September with negative workup at that time and subsequently taken of anti-epileptics. Likely secondary to vaping and marijuana use. Reviewed by neurology and clinically doing well with no focal findings, meningeal signs, or encephalopathy. Laboratory studies, EEG, and MRI were unremarkable. Recommendations: 1. Continue levetiracetam 500 milligrams twice daily. 2. No driving for now. 3. The patient can attend classes starting Wednesday. 4. I can follow up in neurology as an outpatient in 2-3 weeks. (2) Impingement syndrome, shoulder, left: s/p fall. Symptoms consistent with tear/impingement. No fractures on XR. Will follow up in ortho/sports medicine clinic Total Time Total Time Spent Total Time Spent (In Minutes): 55 Total Time Includes: Examination of the Patient, Discharge Planning, Medication Reconciliation, Communication With Other Providers and Other (review of XRs) Discharge Plan Discharge Items Patient Disposition: Home - Self-Care Reason For Visit: GENERALIZED TONIC-CLONIC SEIZURE Discharge Diagnosis: Generalized tonic-clonic seizure Left rotator cuff injury Left shoulder impingement Condition on Discharge: Good Activity: Resume your previous activity Non-emergency contact: Primary Care Provider and Neurologist Call non-emergency contact if: you have any medication questions and your symptoms worsen Follow-up/Referrals: [facility] [Provider Group] (Please, follow up at [facility]. *A nurse from this office will call you with the appointment information. The office is located at [facility] [address] of [facility]. This is the big building next to this [facility]. If you have any questions, call the office at [phone].) Juan Antonio Ramsey III, MD [Physician] - (Please, follow up at [facility] Neurology Office. *A nurse from this office will call you with the appointment information. The office is located at [address] [place] [address] in [place]. If you have any questions, call the office at [phone].) [facility] [Primary Care Provider] - 02/14/19 11:00 am (Please, follow up at [facility] with Dr. Vinita Juárez on WednesdayFebruary 14 at 11:00 am. *If you need to change this appointment, call the office at [phone].) Diet: Regular Addtl Attending Provider Instructions: You were diagnosed with a tonic-clonic generalized seizure. This is likely due to the substances from vaping and you should stop all vaping to prevent future seizures. Alcohol also lowers your seizure threshold and recommend abstaining from alcohol. You were started on Keppra antiseizure medication and will be followed up in neurology clinic in the next 2-3 weeks - appointment to be arranged (please call the number below if you have not heard anything after 7 days). You should not drive until cleared by your neurologist. You were also diagnosed with left shoulder impingement and rotator cuff injury. You were referred to [facility] and will be called regarding an appointment. As above please call the clinic on the number below if you have not heard anything after 7 days. What are seizures? Seizures are waves of abnormal electrical activity in the brain. Seizures can make you pass out, or move or behave strangely. Most seizures last only a few seconds or minutes. Epilepsy is a condition that causes people to have repeated seizures. But not everyone who has had a seizure has epilepsy. Problems such as low blood sugar or infection can also cause seizures. Other problems such as anxiety or fainting spells can cause events that look like seizures. What are the symptoms of a seizure? There are different kinds of seizures. Each causes a different set of symptoms. People who have "tonic clonic" or "grand mal" seizures often get stiff and then have jerking movements. People who have other types of seizures have less dramatic changes. For instance, some people have shaking movements in just 1 arm or in a part of their face. Other people suddenly stop responding and stare for a few seconds. Should I see a doctor or nurse if I have a seizure? If you have never had a seizure before and you have one, you (or whoever is with you) should call for an ambulance (in the [place] and [place], dial [id number]). Having a seizure can be a sign that something is wrong with your brain. How are seizures treated? The right treatment for seizures depends on what is causing them. If you have seizures because of an infection, you will probably need treatments to get rid of the infection. On the other hand, if you have repeated seizures because of epilepsy, you will probably need anti-seizure medicines, also called "anti- convulsants." People sometimes need to try different medicines before they find a treatment that works well. Seizures can be hard to control. But if you work with your doctor, chances are good that you will find a treatment that works. Do anti-seizure medicines cause side effects? Yes. Anti-seizure medicines can cause side effects. They can make you feel tired or clumsy, or cause other problems. If you are bothered by side effects, tell your doctor about it. He or she can work with you to find the medicine or dose that causes the fewest problems. Most of the side effects from these medicines are mild, but there are 2 rare side effects that are very serious: Anti-seizure medicines can increase the risk of becoming suicidal (wanting to kill yourself). Speak to your doctor or nurse right away if you start to feel depressed or have thoughts of harming yourself. Anti-seizure medicines can cause a rare but serious skin rash. Speak to your doctor or nurse right away if you notice a new rash while taking an anti-seizure medicine. What if anti-seizure medicines do not work for me? If you keep having seizures even after trying different medicines, you might have other options. Some people have surgery to remove the part of their brain that is causing seizures. Others get a device put in their chest that helps control seizures. Until you have your seizures under control, do not drive. The laws that say when a person with seizures can drive are different depending on where the person lives. Ask your doctor if you can safely drive and about the laws where you live. Also, if your seizures are not under control make sure to take other safety steps. For example, do not swim without someone else nearby who could help you if you started having a seizure. And avoid activities that could result in you falling from a height. How can I reduce my chances of having more seizures? You can: Take your medicines exactly as directed at the right times, and at the right doses. Tell your doctor about any side effects you have. That way the 2 of you can find the best medicine for you. Be careful not to let your prescription run out. (Stopping anti-seizure medicine suddenly can put you at risk of seizure.) While on anti-seizure medicines, check with your doctor before starting any new medicines. Anti-seizure medicines can interact with prescription and non- prescription medicines, and with herbal drugs. Mixing them can increase side effects or make them not work as well. Avoid alcohol. Alcohol can increase the risk of seizures, affect the way seizure medicines work, and increase side effects from anti-seizure medicines. What should my family members do if they see me having a seizure? Ask your doctor what your family members should do. Some people will have seizures from time to time, and they might not need to see a doctor every time. But if you have a seizure that lasts longer than 5 minutes or if you do not wake up after a seizure, your family members should call for an ambulance (in the [place] and [place], dial [id number]). Your family members should not try to put anything in your mouth while you are having a seizure. But they should make sure you do not bang against any hard surfaces. Pending Studies at Discharge: No Stand-Alone Forms: My [facility] Medications and DC Order Prescriptions: Continued ibuprofen 200 mg Capsule 200 mg PO Q6H PRN (Reason: Pain) RF: 0 epinephrine [EpiPen] 0.3 mg/0.3 mL Auto-Injector 0.3 mg IM UD PRN (Reason: Allergic Reaction) RF: 0 No Action lamotrigine 25 mg tablet 25 mg PO BID Qty: 120 RF: 3 Discharge Orders: Discharge Order (Routine); Ordered 02/10/19 Ordered By: Juancho Mansfield Admission Data Admit Date/Time: 02/09/19 20:17 Attending Provider: Juancho Mansfield Admit Provider: Aretha Ramos Primary Care Provider: [facility] Other Providers: Juan Antonio Ramsey III Other Interventions: Discharge Summary Assessment (RN) Last Done: 02/10/19 13:53 DC Date/Time DO NOT enter until pt leaves facility: 02/10/19 14:24
[2019-02-14 10:14] LABS: Synthetic Cannabinoid Qual Ur NEGATIVE (Negative)
== END 2019-02-10 14:24 | disposition home or self-care (01) | DRG 101 ==
LOC: ED 17:27 → SUATTDRO 20:17 → 1E 20:17
DX: F12.188 Cannabis abuse with other cannabis-induced disorder; E16.2 Hypoglycemia, unspecified; W19.XXXA Unspecified fall, initial encounter; S00.83XA Contusion of other part of head, initial encounter; M75.42 Impingement syndrome of left shoulder; F17.290 Nicotine dependence, other tobacco product, uncomplicated; S46.012A Strain of muscle(s) and tendon(s) of the rotator cuff of left shoulder, initial encounter; G40.409 Other generalized epilepsy and epileptic syndromes, not intractable, without status epilepticus; Z91.013 Allergy to seafood; X58.XXXA Exposure to other specified factors, initial encounter; Z91.018 Allergy to other foods